=== PATIENT | male | born 1960 | race Caucasian/White ===

== ENCOUNTER → 2016-03-12 | Outpatient (REF) | payer BC ==
[2016-03-12 10:24] LABS: ALBUMIN 4.5 g/dL (3.4-5.0); TOTAL PROTEIN 7.5 g/dL (6.4-8.5)
== END ==
LOC: LAB 09:42
PROVIDERS: ATTEND Family Medicine
DX: K76.0 Fatty (change of) liver, not elsewhere classified (principal)
CPT/HCPCS: 80076

== ENCOUNTER → 2016-04-16 | Outpatient (REF) | payer BC ==
[2016-04-16 12:41] LABS: ALBUMIN 4.3 g/dL (3.4-5.0); ANION GAP 16.1 MEQ/L (3-15); CALCULATED IONIZED CALCIUM 4.2 mg/dL (3.8-4.6); TOTAL PROTEIN 7.1 g/dL (6.4-8.5)
== END ==
LOC: LAB 11:25
PROVIDERS: ATTEND Family Medicine
DX: I10 Essential (primary) hypertension (principal)
CPT/HCPCS: 80053

== ENCOUNTER 2016-04-23 06:19 | Day surgery (SDC) | payer BC ==
[~2016-04-23] VITALS: Ht 177.8 cm; Wt 96.8 kg
[~2016-04-23 06:19] MED LIST: LACTATED RINGERS 1,000 ML IV SCH; SODIUM CHLORIDE FLUSH 3 ML SYR IV PRN
[2016-04-23 06:37] VITALS: BP 146/106
[2016-04-23] MEDS ORDERED: MIDAZOLAM 2 MG/2 ML (VERSED) VIAL ONE (07:16)
[2016-04-23] MEDS ORDERED: PROPOFOL 40 ML IV ONE (07:16)
[2016-04-23] MEDS ORDERED: ALFENTANIL 500 MCG/ML (ALFENTA) 5 ML AMP IV ONE (07:16)
[2016-04-23 07:52] VITALS: BP 139/110
[2016-04-23 08:22] VITALS: BP 154/100
--- NOTE | 2016-04-23 08:23 | NUR ---
BP 154/[address] GONSALEZ AWARE OF THIS. TOLD HE EXPECTS BP TO COME DOWN AFTER SALT FROM PREP YESTERDAY IS FLUSHED.
== END 2016-04-23 08:28 | disposition home or self-care (01) ==
LOC: ASC 06:19
PROVIDERS: ATTEND Family Medicine
DX: Z12.11 Encounter for screening for malignant neoplasm of colon (principal); I10 Essential (primary) hypertension; K21.9 Gastro-esophageal reflux disease without esophagitis; K76.0 Fatty (change of) liver, not elsewhere classified; J30.9 Allergic rhinitis, unspecified
CPT/HCPCS: 45378; J2250; J7120